=== PATIENT | male | born 1980 | race Caucasian/White ===

== ENCOUNTER 2019-11-21 16:00 | Inpatient (IN) | payer BC, MEDICAID, OTHER ==
[~2019-11-21] VITALS: Ht 167.6 cm; Wt 77.6 kg
[2019-11-21] MEDS ORDERED: AMOX1TAB64 PO (16:11)
[2019-11-21] MEDS ORDERED: ONDA4TAB13 SL (16:12)
[2019-11-21] MEDS ORDERED: TRAM50TA2 PO (16:13)
--- NOTE | 2019-11-21 16:50 | NUR ---
PT DOZING OFF. O2 SATURATION NOTED TO BE BETWEEN 86-88%. PT PLACED ON 2L O2 VIA NASAL CANNULA.
[2019-11-21] MEDS ORDERED: SODIUM CHLORIDE 0.9% 1,000ML IVBOLUS ONE (17:00)
--- NOTE | 2019-11-21 17:02 | NUR ---
PT SITTING ON BED AND ABLE TO DOZE OFF, NAD. O2 SATURATION IMPROVEMENT NOTED AT 99% ON 2L VIA NASAL CANNULA. NO ADDITIONAL NEEDS AT THIS TIME. COMFORT MEASURES PROVIDED, FALL PRECAUTIONS IN PLACE.
[2019-11-21 17:11] LABS: BASOPHILS # (AUTO) 0.04 x10^3/uL (0-0.1); BASOPHILS % (AUTO) 0 % (0-1); EOSINOPHILS # (AUTO) 1.47 x10^3/uL (0-0.4); EOSINOPHILS % (AUTO) 11 % (1-7); LYMPHOCYTES % (AUTO) 8 % (22-44); MD NO; MEAN CORPUSCULAR HEMOGLOBIN 30.5 pg (27.5-34.5); MEAN CORPUSCULAR HGB CONC 32.9 g/dL (33.2-36.2); MEAN CORPUSCULAR VOLUME 92.8 fL (81-97); MEAN PLATELET VOLUME 7.6 fL (7.4-10.4); MONOCYTES # (AUTO) 0.94 x10^3/uL (0.2-0.8); MONOCYTES % (AUTO) 7 % (2-9); NEUTROPHILS # (AUTO) 10.48 x10^3/uL (1.8-6.8); NEUTROPHILS % (AUTO) 75 % (42-75); PLATELET COUNT 433 x10^3/uL (130-400); RED BLOOD COUNT 3.81 x10^6/uL (4.38-5.82); RED CELL DISTRIBUTION WIDTH 14.1 % (9.4-14.8)
[2019-11-21 17:17] LABS: ALBUMIN 2.3 g/dL (3.4-5.0); ANION GAP 6 mmol/L (5-15); CALCIUM 8.3 mg/dL (8.5-10.1); CHLORIDE 110 mmol/L (98-107)
[2019-11-21 17:20] LABS: ALANINE AMINOTRANSFERASE 9 U/L (12-78); ALKALINE PHOSPHATASE 64 U/L (45-117); BILIRUBIN,TOTAL 0.2 mg/dL (0.2-1.0); CREATININE 1.21 mg/dL (0.7-1.3); TOTAL PROTEIN 5.4 g/dL (6.4-8.2)
[2019-11-21] MEDS ORDERED: SODIUM CHLORIDE FLUSH 10ML SYR IVF ONE (17:30)
[2019-11-21] MEDS ORDERED: MORPHINE SULFATE 4 MG/ML, 1ML ONE ×2 (17:37→20:01)
[2019-11-21] MEDS ORDERED: ONDANSETRON 2MG/ML, 2ML ONE (17:37)
[2019-11-21] MEDS: MORPHINE SULFATE 4 MG/ML, 1ML IVPush PRN ×2 (17:52→20:06)
[2019-11-21] MEDS ORDERED: ONDANSETRON 2MG/ML, 2ML IVPush ONE (18:00)
--- NOTE | 2019-11-21 18:00 | NUR ---
PT RESTING ON GURENY. ABLE TO DOZE OFF. STATES PAIN HAS IMPROVED, /. PT HAS NO ADDITIONAL NEEDS AT THIS TIME. CALL LIGHT WITHIN REACH, FALL PRECAUTIONS IN PLACE. FAMILY AT BEDSIDE.
[2019-11-21] MEDS ORDERED: SODIUM CHLORIDE 0.9% 1,000 ML IV ONE (18:12)
[2019-11-21] MEDS ORDERED: SODIUM CHLORIDE FLUSH 10ML SYR IVF PRN (18:30)
[2019-11-21] MEDS ORDERED: SODIUM CHLORIDE 0.9% 1,000 ML IV SCH (18:59)
[2019-11-21] MEDS ORDERED: MOVIPREP POWDER 1 PREP KIT PO ONE (19:00)
--- NOTE | 2019-11-21 19:02 | NUR ---
REPORT GIVEN TO NOC COLT, ORACIO.
[2019-11-21] MEDS ORDERED: NS + 20MEQ KCL 1,000 ML IV SCH (19:30)
--- NOTE | 2019-11-21 21:10 | NUR ---
ATTEMPTED REPORT, FLOOR RN IN ANOTHER PT'S ROOM. AWAITING CALL BACK.
--- NOTE | 2019-11-21 21:24 | NUR ---
REPORT GIVEN TO JOSE. PREPARING TO TRANSFER.
[2019-11-21 22:07] VITALS: BP 117/83
[2019-11-21] MEDS: morphine SULFATE 10 MG/ML, 1ML IVPush PRN (23:46)
[2019-11-21] MEDS: ONDANSETRON 2MG/ML, 2ML IVPush PRN (23:46)
[2019-11-22 00:20] LABS: CLOSTRIDIUM DIFFICILE ANTIGEN NEGATIVE; CLOSTRIDIUM DIFFICILE TOXIN NEGATIVE (Negative)
[2019-11-22 01:20] VITALS: BP 100/63
[2019-11-22] MEDS: morphine SULFATE 10 MG/ML, 1ML IVPush PRN (05:49)
[2019-11-22] MEDS: ONDANSETRON 2MG/ML, 2ML IVPush PRN (05:55)
[2019-11-22 06:48] VITALS: BP 103/66
[2019-11-22 08:42] LABS: ANION GAP 8 mmol/L (5-15); BASOPHILS # (AUTO) 0.03 x10^3/uL (0-0.1); BASOPHILS % (AUTO) 0 % (0-1); CALCIUM 8.1 mg/dL (8.5-10.1); CHLORIDE 110 mmol/L (98-107); EOSINOPHILS # (AUTO) 1.36 x10^3/uL (0-0.4); EOSINOPHILS % (AUTO) 16 % (1-7); LYMPHOCYTES # (AUTO) 1.02 x10^3/uL (1-3.4); LYMPHOCYTES % (AUTO) 12 % (22-44); MD NO; MEAN CORPUSCULAR HEMOGLOBIN 30.3 pg (27.5-34.5); MEAN CORPUSCULAR HGB CONC 32.3 g/dL (33.2-36.2); MEAN CORPUSCULAR VOLUME 93.7 fL (81-97); MEAN PLATELET VOLUME 7.3 fL (7.4-10.4); MONOCYTES # (AUTO) 0.77 x10^3/uL (0.2-0.8); MONOCYTES % (AUTO) 9 % (2-9); NEUTROPHILS # (AUTO) 5.36 x10^3/uL (1.8-6.8); NEUTROPHILS % (AUTO) 63 % (42-75); PLATELET COUNT 405 x10^3/uL (130-400); RED BLOOD COUNT 3.91 x10^6/uL (4.38-5.82); RED CELL DISTRIBUTION WIDTH 14.4 % (9.4-14.8)
[2019-11-22 08:43] LABS: CREATININE 1.02 mg/dL (0.7-1.3)
[2019-11-22] MEDS ORDERED: PROPOFOL 10 MG/ML, 50ML ONE (09:05)
[2019-11-22] MEDS ORDERED: PROPOFOL 10 MG/ML, 20ML ONE (09:05)
[2019-11-22] MEDS ORDERED: DIPHENHYDRAMINE 50 MG/ML, 1ML IVPush PRN (09:30)
[2019-11-22] MEDS ORDERED: FENTANYL PF 100 MCG/2ML IV PRN (09:30)
[2019-11-22] MEDS ORDERED: ONDANSETRON 2MG/ML, 2ML IVPush PRN (09:30)
[2019-11-22] MEDS ORDERED: EPHEDRINE 50 MG/ML, 1ML IVPush PRN (09:30)
[2019-11-22] MEDS ORDERED: HYDROcodone/APAP 5/325 TABLET PO PRN (10:30)
[2019-11-22] MEDS ORDERED: PRED20TA PO (11:08)
[2019-11-22] MEDS ORDERED: HYDR-3237 PO (11:08)
== END 2019-11-22 12:10 | disposition home or self-care (01) | DRG 385 ==
LOC: ED 18:16 → EDIP 18:34 → 3N 21:30 → DCLOUNGE 11-22 12:04
PROVIDERS: ADMIT Family Medicine; ATTEND Hospitalist
PROC: 0DBN8ZX Excision of Sigmoid Colon, Via Natural or Artificial Opening Endoscopic, Diagnostic (ICD-10-PCS; 2019-11-22)
PROC: 0DBK8ZX Excision of Ascending Colon, Via Natural or Artificial Opening Endoscopic, Diagnostic (ICD-10-PCS; principal; 2019-11-22 10:30)
DX: K51.911 Ulcerative colitis, unspecified with rectal bleeding (principal); N17.0 Acute kidney failure with tubular necrosis; D62 Acute posthemorrhagic anemia; E46 Unspecified protein-calorie malnutrition; Z68.27 Body mass index [BMI] 27.0-27.9, adult; E87.6 Hypokalemia; F12.20 Cannabis dependence, uncomplicated; F17.210 Nicotine dependence, cigarettes, uncomplicated; K59.00 Constipation, unspecified; Z20.828 Contact with and (suspected) exposure to other viral communicable diseases
CPT/HCPCS: 36415; 74018; 80048; 80053; 85025; 86480; 86704; 86706; 87046; 87324; 87340; 87635; 88305; 89055; G0378; J2405; J2704; J3480; J2270; J7030

== ENCOUNTER 2020-08-15 20:43 | Emergency (ER) | payer MEDICAID ==
[~2020-08-15] VITALS: Ht 167.6 cm; Wt 84.2 kg
[~2020-08-15 20:43] MED LIST: AMOX1TAB64 PO; HYDR-3237 PO; ONDA4TAB13 SL; PRED20TA PO; TRAM50TA2 PO
[2020-08-15 20:53] VITALS: BP 129/83
[2020-08-15] MEDS ORDERED: DIPH,PERTUSS(ACELL),TET VAC/PF 0.5 ML IM-VACC ONE ×2 (21:00→21:56)
[2020-08-15] MEDS ORDERED: L.E.T SOLUTION TP ONE ×3 (21:00→23:27)
[2020-08-15] MEDS ORDERED: LIDOCAINE-MPF 1%, 5ML INFIL ONE (21:00)
[2020-08-15] MEDS ORDERED: LIDOCAINE-MPF 1%, 5ML ONE (23:34)
[2020-08-16] MEDS ORDERED: NEOSPORIN OINT. PKT 1 PACKET ONE (00:17)
== END 2020-08-16 01:27 | disposition home or self-care (01) ==
LOC: ED 23:03
DX: S61.011A Laceration without foreign body of right thumb without damage to nail, initial encounter (principal); W26.8XXA Contact with other sharp object(s), not elsewhere classified, initial encounter; Y93.G3 Activity, cooking and baking; Y92.000 Kitchen of unspecified non-institutional (private) residence as the place of occurrence of the external cause; Y99.8 Other external cause status
CPT/HCPCS: 12001; 90471; 90715

== ENCOUNTER 2020-09-24 12:35 | Emergency (ER) | payer MEDICAID ==
[~2020-09-24] VITALS: Ht 167.6 cm; Wt 85.0 kg
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
[2020-09-24] MEDS ORDERED: KETOROLAC 30 MG/1 ML ONE (12:55)
--- NOTE | 2020-09-24 13:03 | NUR ---
PT TO XR
--- NOTE | 2020-09-24 13:25 | NUR ---
pt back from xr, medicated per order, tolerated well. pt a&o, resps even and unlabored, vss, nadn.
[2020-09-24] MEDS ORDERED: KETOROLAC 30 MG/1 ML IM ONE (13:30)
[2020-09-24 13:42] VITALS: BP 142/76
--- NOTE | 2020-09-24 14:35 | NUR ---
task rn note: knee immobilizer in place. crutches administered and crutch instructions given. awaiting dc paperwork.
== END 2020-09-24 14:37 | disposition home or self-care (01) ==
LOC: ED 13:37
DX: S50.311A Abrasion of right elbow, initial encounter (principal); M25.561 Pain in right knee; M25.552 Pain in left hip; R07.89 Other chest pain; V89.2XXA Person injured in unspecified motor-vehicle accident, traffic, initial encounter; Y93.89 Activity, other specified; Y92.410 Unspecified street and highway as the place of occurrence of the external cause; Y99.8 Other external cause status
CPT/HCPCS: 29505; 71045; 73502; 73564; 73590; 96372; 99284; J1885